=== PATIENT | female | born 1985 | race Two or more races ===

== ENCOUNTER 2019-07-03 13:56 | Observation (INO) | payer SELFPAY ==
[~2019-07-03 13:56] MED LIST: ROCURONIUM BROMIDE INJ 50 MG/5 ML VIAL IV ONE; SUCCINYLCHOLINE CHLORIDE INJ 200 MG/10 ML VIAL ONE
[2019-07-03] MEDS ORDERED: ONDANSETRON 4 MG TAB.RAPDIS PO ONE (14:21)
--- NOTE | 2019-07-03 14:23 | ER Document Report ---
ED Medical Screen (RME) - General Chief Complaint: Abdominal Pain Stated Complaint: ABDOMINAL PAIN Time Seen by Provider: 07/03/19 14:19 Mode of Arrival: Ambulatory Information source: Patient Notes: Patient presents the morning with complaints of abdominal pain that started this morning with vomiting. Denies past medical history. Right upper quad epigastric area very tender to palpate. I have greeted and performed a rapid initial assessment of this patient. A comprehensive ED assessment and evaluation of the patient, analysis of test results and completion of the medical decision making process will be conducted by additional ED providers. Dictation of this chart was performed using voice recognition software; therefore, there may be some unintended grammatical errors. Physical Exam - Vital signs Vitals: Pulse Resp BP Pulse Ox 83 18 126/67 H 100 07/03/19 14:00 07/03/19 14:00 07/03/19 14:00 07/03/19 14:00 Course - Vital Signs Vital signs: Temp Pulse Resp BP Pulse Ox 83 18 126/67 H 100 07/03/19 14:00 07/03/19 14:00 07/03/19 14:00 07/03/19 14:00
[2019-07-03] MEDS ORDERED: KETOROLAC TROMETHAMINE 60 MG/2 ML SDV IM ONE (14:34)
[2019-07-03] MEDS ORDERED: KETOROLAC TROMETHAMINE INJ/PF 30 MG/1 ML SDV IV ONE (15:03)
[2019-07-03 15:40] LABS: AMORPHOUS SEDIMENT,URINE TRACE /HPF; APPEARANCE,URINE TURBID; BILIRUBIN,URINE NEGATIVE (NEGATIVE); COLOR,URINE YELLOW; GLUCOSE, URINE NEGATIVE (NEGATIVE); KETONES,URINE 20 mg/dL (NEGATIVE); LEUKOCYTE ESTERASE,URINE SMALL (NEGATIVE); NITRITE,URINE NEGATIVE (NEGATIVE); PROTEIN,URINE 30 mg/dL (NEGATIVE); URINE SPECIFIC GRAVITY 1.025; UROBILINOGEN,URINE NEGATIVE mg/dL (<2.0)
[2019-07-03 15:44] LABS: ABSOLUTE LYMPHOCYTES (AUTO) 0.9 10^3/uL (0.5-4.7); ABSOLUTE MONOCYTES (AUTO) 0.6 10^3/uL (0.1-1.4); BASOPHILS % (AUTO) 0.2 % (0-2); HEMATOCRIT 41.4 % (36.0-47.0); HEMOGLOBIN 13.9 g/dL (12.0-15.5); LYMPHOCYTES % (AUTO) 6.2 % (13-45); MEAN CORPUSCULAR HEMOGLOBIN 30.3 pg (27.0-33.4); MEAN CORPUSCULAR HGB CONC 33.5 g/dL (32.0-36.0); MEAN CORPUSCULAR VOLUME 90 fl (80-97); MONOCYTES % (AUTO) 4.4 % (3-13); PLATELET COUNT 353 10^3/uL (150-450); RED BLOOD COUNT 4.58 10^6/uL (3.72-5.28); RED CELL DISTRIBUTION WIDTH 13.3 % (11.5-14.0); SEGMENTED NEUTROPHILS % (AUTO) 89.2 % (42-78); TOTAL CELLS COUNTED % (AUTO) 100 %; WHITE BLOOD COUNT 14.5 10^3/uL (4.0-10.5)
--- NOTE | 2019-07-03 15:47 | RADIOLOGY REPORT (SQ) ---
EXAM DESCRIPTION: U/S ABDOMEN LIMITED W/O DOP COMPLETED DATE/TIME: 07/03/2019 3:35 pm REASON FOR STUDY: ruq epigastric pain COMPARISON: None. TECHNIQUE: Dynamic and static grayscale images acquired of the abdomen and recorded on PACS. Alono gavin selected color Doppler and spectral images recorded. LIMITATIONS: None. FINDINGS: PANCREAS: No masses. Visualized pancreatic duct normal caliber. LIVER: No masses. Echotexture normal. LIVER VASCULATURE: Normal directional flow of the main portal vein and hepatic veins. GALLBLADDER: Some small gallstones are present. There is no wall thickening or pericholecystic fluid . ULTRASOUND-DETECTED MCPHERSON'S SIGN: Negative. INTRAHEPATIC DUCTS AND COMMON DUCT: CBD and intrahepatic ducts normal caliber. No filling defects. INFERIOR VENA CAVA: Not imaged. AORTA: No aneurysm. RIGHT KIDNEY: Normal size, 10.2 cm. Normal echogenicity. No solid or suspicious masses. No hydroneph rosis. No calcifications. PERITONEAL AND RIGHT PLEURAL SPACE: No ascites or effusions. OTHER: No other significant findings. IMPRESSION: Cholelithiasis with no evidence of cholecystitis. TECHNICAL DOCUMENTATION: JOB ID: [id number] [employer]- All Rights Reserved Reading location - IP/workstation name: [email or web address]
[2019-07-03 15:52] LABS: ALBUMIN 4.7 g/dL (3.5-5.0); ALKALINE PHOSPHATASE 108 U/L (38-126); ANION GAP 11 (5-19); ASPARTATE AMINO TRANSFERASE 28 U/L (14-36); BILIRUBIN,DIRECT 0.1 mg/dL (0.0-0.4); BILIRUBIN,TOTAL 0.7 mg/dL (0.2-1.3); BLOOD UREA NITROGEN 11 mg/dL (7-20); CALCIUM 9.9 mg/dL (8.4-10.2); CARBON DIOXIDE 24 mmol/L (22-30); CHLORIDE 105 mmol/L (98-107); GLUCOSE 144 mg/dL (75-110); TOTAL PROTEIN 8.3 g/dL (6.3-8.2)
[2019-07-03] MEDS ORDERED: NORMAL SALINE 1000 ML 1,000 ML IV ONE (17:24)
--- NOTE | 2019-07-03 17:30 | ER Document Report ---
ED GI/ - General Chief Complaint: Abdominal Pain Stated Complaint: ABDOMINAL PAIN Time Seen by Provider: 07/03/19 14:19 Mode of Arrival: Ambulatory Information source: Patient Notes: 33-year-old female presents to ED for complaint of right upper quadrant abdominal pain this morning with nausea and vomiting. She states she has not had any diarrhea. She states anything she drinks with milk based makes the pain much worse. She states she does smoke 1/2 pack a day drinks weekly does not do any drugs does not work and lives with friends. Her temperature was 98.8. Ultrasound showed cholelithiasis without any cholecystitis. White count was 14.5 with this setting of 89.2 we will consult with surgeon. - HPI Patient complains to provider of: Abdominal pain, Vomiting Onset: This morning Timing/Duration: Intermittent, Better Quality of pain: Cramping, Sharp Severity at maximum: Severe Severity in ED: Mild Pain Level: 2 Location: RUQ Vaginal bleeding (Compared to normal period): None Associated symptoms: Loss of appetite, Nausea, Vomiting Exacerbated by: Movement, Food Relieved by: Denies Similar symptoms previously: No Recently seen / treated by doctor: No - Related Data Allergies/Adverse Reactions: No Known Allergies Allergy (Unverified 07/03/19 14:23) Past Medical History - General Information source: Patient - Social History Smoking Status: Current Every Day Smoker Cigarette use (# per day): Yes - 1/2 pack/day Chew tobacco use (# tins/day): No Smoking Education Provided: Yes - 4 minutes Frequency of alcohol use: Social Drug Abuse: None Occupation: None Lives with: Friend Family History: Reviewed & Not Pertinent Patient has suicidal ideation: No Patient has homicidal ideation: No Pulmonary Medical History: Reports: None EENT Medical History: Reports: None Neurological Medical History: Reports: None Endocrine Medical History: Reports: None Renal/ Medical History: Reports: None Malignancy Medical History: Reports: None GI Medical History: Reports: Hx Colonoscopy Musculoskeletal Medical History: Reports None Skin Medical History: Reports Hx Eczema Psychiatric Medical History: Reports: Hx Depression, Hx Post Traumatic Stress Disorder Traumatic Medical History: Reports: None Infectious Medical History: Reports: None Surgical Hx: Negative Past Surgical History: Reports: None - Immunizations Immunizations up to date: Yes Hx Diphtheria, Pertussis, Tetanus Vaccination: Yes Review of Systems - Review of Systems Constitutional: No symptoms reported EENT: No symptoms reported Cardiovascular: No symptoms reported Respiratory: No symptoms reported Gastrointestinal: Abdominal pain, Nausea, Vomiting Genitourinary: No symptoms reported Female Genitourinary: No symptoms reported Musculoskeletal: No symptoms reported Skin: No symptoms reported Hematologic/Lymphatic: No symptoms reported Neurological/Psychological: No symptoms reported -: Yes All other systems reviewed and negative Physical Exam - Vital signs Vitals: Pulse Resp BP Pulse Ox 83 18 126/67 H 100 07/03/19 14:00 07/03/19 14:00 07/03/19 14:00 07/03/19 14:00 Interpretation: Normal - General General appearance: Appears well, Alert - HEENT Head: Normocephalic, Atraumatic Eyes: Normal Pupils: PERRL - Respiratory Respiratory status: No respiratory distress Chest status: Nontender Breath sounds: Normal Chest palpation: Normal - Cardiovascular Rhythm: Regular Heart sounds: Normal auscultation Murmur: No - Abdominal Inspection: Normal Distension: No distension Bowel sounds: Normal Tenderness: Tender, Smith's sign Organomegaly: No organomegaly - Back Back: Normal, Nontender - Extremities General upper extremity: Normal inspection, Nontender, Normal color, Normal ROM, Normal temperature General lower extremity: Normal inspection, Nontender, Normal color, Normal ROM, Normal temperature, Normal weight bearing. No: Ricardo's sign - Neurological Neuro grossly intact: Yes Cognition: Normal Orientation: AAOx4 [place] Coma Scale Eye Opening: Spontaneous [place] Coma Scale Verbal: Oriented [place] Coma Scale Motor: Obeys Commands [place] Coma Scale Total: 15 Speech: Normal Motor strength normal: LUE, RUE, LLE, RLE Sensory: Normal - Psychological Associated symptoms: Normal affect, Normal mood - Skin Skin Temperature: Warm Skin Moisture: Dry Skin Color: Normal Course - Re-evaluation Re-evalutation: 07/03/19 17:35 We will discuss labs and ultrasound with Jennifer before deciding dispensation Dr. Rodriguez was consulted he stated patient could not be sent home she needed to have the surgery. Patient was admitted to Dr. Rodriguez's services for cholelithiasis with elevated white count. He stated he would put in admission orders and patient was to be admitted to the surgical floor. - Vital Signs Vital signs: Temp Pulse Resp BP Pulse Ox 98.1 F 107 H 16 110/71 97 07/03/19 20:33 07/03/19 20:33 07/03/19 20:32 07/03/19 20:33 07/03/19 20:33 - Laboratory Result Diagrams: 07/03/19 14:50 07/03/19 14:50 Laboratory results interpreted by me: 07/03/19 07/03/19 07/03/19 14:50 14:50 14:50 WBC 14.5 H Lymph % (Auto) 6.2 L Absolute Neuts (auto) 13.0 H Seg Neutrophils % 89.2 H Glucose 144 H Total Protein 8.3 H Urine Protein 30 H Urine Ketones 20 H Urine Blood MODERATE H Ur Leukocyte Esterase SMALL H - Diagnostic Test Radiology reviewed: Image reviewed, Reports reviewed Discharge - Discharge Clinical Impression: Cholelithiasis Qualifiers: Cholelithiasis location: gallbladder Cholecystitis presence: with cholecystitis Cholecystitis acuity: unspecified acuity Biliary obstruction: without biliary obstruction Qualified Code(s): K80.10 - Calculus of gallbladder with chronic cholecystitis without obstruction Disposition: ADMITTED INPATIENT Admitting Provider: Surgicalist - [facility] Unit Admitted: Surgical Floor
--- NOTE | 2019-07-03 20:05 | PDOC H&P ---
History of Present Illness Admission Date/PCP: 07/03/19 19:23 State July 03 Patient complains of: Abdominal pain History of Present Illness: WINSOME SINHA is a 33 year old female Patient presents emergency department via ground rescue complaining of a day history of abdominal pain, nausea, anorexia. She denies constipation, history of trauma previous episodes. She was seen in the urgency department where she was found to have right upper quadrant tenderness, leukocytosis, and ultrasound demonstrating cholelithiasis. Surgery was consulted and patient was advised admission for definitive management. Past Medical History Past Medical History: Anxiety disorder, depression, PTSD, eczema Pulmonary Medical History: Reports: None EENT Medical History: Reports: None Neurological Medical History: Reports: None Endocrine Medical History: Reports: None Renal/ Medical History: Reports: None Malignancy Medical History: Reports: None Musculoskeltal Medical History: Reports: None Skin Medical History: Reports: Eczema Psychiatric Medical History: Reports: Depression, Post Traumatic Stress Disorder Traumatic Medical History: Reports: None Infectious Medical History: Reports: None Past Surgical History Past Surgical History: Reports: None Social History Lives with: Friend Smoking Status: Current Every Day Smoker Electronic Cigarette use?: No Frequency of Alcohol Use: Rare Hx Recreational Drug Use: No Hx Prescription Drug Abuse: No Family History Family History: None, Reviewed & Not Pertinent Parental Family History Reviewed: No Children Family History Reviewed: No Sibling(s) Family History Reviewed.: No Medication/Allergy Home Medications: No Home Medications 07/03/19 Allergies/Adverse Reactions: No Known Allergies Allergy (Unverified 07/03/19 14:23) Review of Systems Constitutional: PRESENT: as per HPI Eyes: ABSENT: visual disturbances Ears: ABSENT: hearing changes Cardiovascular: ABSENT: chest pain, dyspnea on exertion, edema, orthropnea, palpitations Respiratory: ABSENT: cough, hemoptysis Gastrointestinal: PRESENT: as per HPI Integumentary: ABSENT: rash, wounds Neurological: ABSENT: abnormal gait, abnormal speech, confusion, dizziness, focal weakness, syncope Psychiatric: ABSENT: anxiety, depression, homidical ideation, suicidal ideation Endocrine: ABSENT: cold intolerance, heat intolerance, polydipsia, polyuria Physical Exam Vital Signs: Temp Pulse Resp BP Pulse Ox 98.0 F 105 H 16 99/63 L 99 07/03/19 19:48 07/03/19 19:48 07/03/19 19:48 07/03/19 19:48 07/03/19 19:48 Intake & Output 07/02/19 07/03/19 07/04/19 06:59 06:59 06:59 Weight 69 kg General appearance: PRESENT: mild distress Head exam: PRESENT: normocephalic Eye exam: PRESENT: EOMI Mouth exam: PRESENT: dry mucosa Teeth exam: PRESENT: dental caries Neck exam: PRESENT: full ROM Respiratory exam: PRESENT: rhonchi Cardiovascular exam: PRESENT: RRR Pulses: PRESENT: normal carotid pulses, normal radial pulses, normal femoral pulses GI/Abdominal exam: PRESENT: other - Tender right upper quadrant with guarding, no rigidity. Rectal exam: PRESENT: deferred Extremities exam: PRESENT: full ROM Musculoskeletal exam: PRESENT: full ROM Psychiatric exam: PRESENT: appropriate affect Results Laboratory Results: 07/03/19 14:50 07/03/19 14:50 07/03/19 07/03/19 07/03/19 14:50 14:50 14:50 WBC 14.5 H RBC 4.58 Hgb 13.9 Hct 41.4 MCV 90 MCH 30.3 MCHC 33.5 RDW 13.3 Plt Count 353 Seg Neutrophils % 89.2 H Sodium 139.8 Potassium 5.0 Chloride 105 Carbon Dioxide 24 Anion Gap 11 BUN 11 Creatinine 0.57 Est GFR ( Amer) > 60 Glucose 144 H Calcium 9.9 Total Bilirubin 0.7 AST 28 Alkaline Phosphatase 108 Total Protein 8.3 H Albumin 4.7 Lipase 143.5 Urine Color YELLOW Urine Appearance TURBID Urine pH 6.0 Ur Specific [place] 1.025 Urine Protein 30 H Urine Glucose (UA) NEGATIVE Urine Ketones 20 H Urine Blood MODERATE H Urine Nitrite NEGATIVE Ur Leukocyte Esterase SMALL H Urine RBC (Auto) 6 Impressions: Abdomen Ultrasound 07/03/19 14:21 IMPRESSION: Cholelithiasis with no evidence of cholecystitis. Assessment & Plan - Diagnosis (1) Cholelithiasis Qualifiers: Cholelithiasis location: gallbladder Cholecystitis acuity: unspecified acuity Biliary obstruction: without biliary obstruction Is this a current diagnosis for this admission?: Yes Plan: Pression: Symptomatic cholelithiasis with cholecystitis and 33-year-old smoker Recommendations: 1. Admit, n.p.o., IV fluids, and plan for interval cholecystectomy, laparoscopic possible open, surgical list of the day likely July 04. 2. Patient expresses understanding agrees to proceed. (2) Smoker Is this a current diagnosis for this admission?: Yes (3) Anxiety disorder Is this a current diagnosis for this admission?: Yes - Time Time Spent: 30 to 50 Minutes Smoking Cessation Education: 3 to 10 minutes Medications reviewed and adjusted accordingly: Yes Anticipated discharge: Home - Inpatient Certification Based on my medical assessment, after consideration of the patient's comorbidities, presenting symptoms, or acuity I expect that the services needed warrant INPATIENT care.: Yes I certify that my determination is in accordance with my understanding of Medicare's requirements for reasonable and necessary INPATIENT services [42 CFR 412.3e].: Yes Medical Necessity: Need For IV Fluids, Need for Pain Control, Need for IV Antibiotics, Need for Surgery
[2019-07-03] MEDS ORDERED: ONDANSETRON HCL INJ/PF 4 MG/2 ML SDV IV PRN (20:06)
[2019-07-03] MEDS ORDERED: KETOROLAC TROMETHAMINE INJ/PF 30 MG/1 ML SDV IV PRN (20:06)
[2019-07-03] MEDS ORDERED: CEFAZOLIN 1 GM/D5W RTU 1 GM/50 ML RTUPB IV SCH (20:15)
[2019-07-03] MEDS: CEFAZOLIN SODIUM 1 GM in DEXTROSE 5%-WATER 50 ML IV SCH (21:44)
[2019-07-04] MEDS: RINGERS SOLUTION,LACTATED 1,000 ML IV PRN ×2 (03:43→13:19)
[2019-07-04] MEDS: CEFAZOLIN SODIUM 1 GM in DEXTROSE 5%-WATER 50 ML IV SCH ×3 (05:48→22:01)
[2019-07-04] MEDS ORDERED: ACETAMINOPHEN 1,000 MG/100 ML RTUPB IV ONE ×2 (16:13→19:07)
[2019-07-04] MEDS ORDERED: ONDANSETRON HCL INJ/PF 4 MG/2 ML SDV ONE (16:54)
[2019-07-04] MEDS ORDERED: FENTANYL CITRATE INJ/PF 100 MCG/2 ML AMPUL ONE (16:54)
[2019-07-04] MEDS ORDERED: DEXAMETHASONE SOD PHOSPHATE INJ 4 MG/1 ML VIAL ONE (16:54)
[2019-07-04] MEDS ORDERED: PROPOFOL INJ 200 MG/20 ML VIAL IV ONE (16:54)
[2019-07-04] MEDS ORDERED: MIDAZOLAM 2 MG/2 ML INJ ONE (16:54)
[2019-07-04] MEDS ORDERED: DIPHENHYDRAMINE HCL 50 MG/ML VIAL IV PRN (17:37)
[2019-07-04] MEDS ORDERED: ONDANSETRON HCL INJ/PF 4 MG/2 ML SDV IV PRN (17:37)
[2019-07-04] MEDS ORDERED: MORPHINE SULFATE 10 MG/ML INJ IV PRN (17:37)
[2019-07-04] MEDS ORDERED: MEPERIDINE HCL/PF INJ 25 MG/1 ML DISP.SYRIN IV PRN (17:37)
[2019-07-04] MEDS ORDERED: FENTANYL CITRATE INJ/PF 100 MCG/2 ML AMPUL IV PRN ×3 (17:37)
[2019-07-04] MEDS ORDERED: PROMETHAZINE HCL INJ 25 MG/1 ML VIAL IV PRN ×2 (17:37)
[2019-07-04] MEDS ORDERED: BUPIVACAINE HCL 0.5%-EPI 1:200000 INJ/PF 30 ML VIAL ONE (18:07)
--- NOTE | 2019-07-04 18:24 | Discharge Summary ---
Discharge Summary (SDC) - Discharge Final Diagnosis: cholecystitis Date of Surgery: 07/04/19 Discharge Date: 07/04/19 Condition: Good Referrals: [facility] [Provider Group] - 07/15/19 1:15 pm () Discharge Diet: As Tolerated Discharge Activity: Activity As Tolerated, No Lifting Over 10 Pounds Report the Following to Your Physician Immediately: Shortness of Breath, Increase in Pain, Fever over 101 Degrees, Unusual Bleeding
--- NOTE | 2019-07-04 18:32 | Operative Report ---
Nonrecallable Operative Report DATE OF SURGERY: 07/04/19 PREOPERATIVE DIAGNOSIS: Cholecystitis POSTOPERATIVE DIAGNOSIS: Cholecystitis OPERATION: Laparoscopic cholecystectomy SURGEON: MARLA WOODS ANESTHESIA: GA TISSUE REMOVED OR ALTERED: Gallbladder COMPLICATIONS: None ESTIMATED BLOOD LOSS: 50 cc INTRAOPERATIVE FINDINGS: Acute cholecystitis PROCEDURE: After obtaining informed consent, the patient was taken to the operating room. General Anesthesia was induced; the arms were extended, and the abdomen was exposed, and prepped and draped in a sterile fashion. Instrumentation was set up for laparoscopic cholecystectomy. Surgical plan and surgical timeout were conducted. A infraumbilical was made a below 10 the umbilicus, and a verres needle was inserted uneventfully into the peritoneal cavity. Pneumoperitoneum was established. The verres needle was removed and a 5 mm trocar was inserted and a 5 mm laparoscope was inserted. Visualization of the peritoneal cavity confirmed safe uneventful entry. Under direct visualization 3 additional 5 mm ports were established, one in the subxiphoid position and second in the subcostal position. Visualization of the hepatobiliary anatomy revealed no anatomic variations. A grasper was placed on the fundus of the gallbladder and the gallbladder is elevated over the right surface of the liver; a second grasper was used to grasp the infundibulum of the gallbladder. The neck of the gallbladder and junction with the cystic duct was dissected out. The Cystic artery was in its usual location medial and cephalad to the cystic duct. The cystic artery was surrounded with a right angle clamp, clipped twice proximally and divided with laparoscopic scissors. We now opened the triangle of Calot by dividing the peritoneal reflection on both the medial and lateral sides of the cystic duct infundibular junction. The critical view was obtained. We now milked the cystic duct of any possible stones, clipped the cystic duct approximately 2 times once distally and divided with scissors. The gallbladder was now removed from the undersurface of the liver using hook cautery dissection. Graspers were repositioned and the gallbladder was removed uneventfully from the abdominal cavity through the super umbilical port site incision. The specimen was examined, then passed off to pathology for permanent analysis. We returned to the peritoneal cavity check for bleeding, and evidence of bile leak, and there was none. We Confirmed satisfactory placement of clips on cystic duct and cystic artery were secured . At this point we felt the operation was complete. The subcutaneous tissue was then anesthetized with quarter percent Marcaine Sponge and needle counts are correct. All ports removed under direct visualization pneumoperitoneum evacuated, and 5 mm port wounds closed with 3-0 Vicryl suture, benzoin and Steri-Strips. The patient was extubated, and taken to the recovery room in stable condition. Sponge needle counts were correct x2 estimated blood loss 50 cc
--- NOTE | 2019-07-04 18:34 | PDOC DISCHARGE SUMMARY ---
General - Admit/Disc Date/PCP Admission Date/Primary Care Provider: 07/03/19 19:23 Discharge Date: 07/04/19 - Discharge Diagnosis Final Diagnosis: Acute cholecystitis - Assessment Summary: Patient was admitted on 07/03/2019 with upper abdominal pain in the right upper quadrant radiating to the back on ultrasound was consistent with cholelithiasis and therefore patient was admitted with a diagnosis because of cholelithiasis. She was made n.p.o. and taken to the operating room the following day where she underwent laparoscopic cholecystectomy which showed cholecystitis the gal lbladder was removed uneventfully and the patient had a benign postop course and recovery room. There is no surgical complications and for the patient is being discharged home this evening with instructions to resume a light diet tonight she will be given a follow-up appointment in 7 to 10 days after discharge Final diagnosis is acute cholecystitis. - Additional Information Resuscitation Status: Full Code Discharge Diet: As Tolerated Discharge Activity: Activity As Tolerated, No Lifting Over 10 Pounds Referrals: [facility] [Provider Group] - 07/15/19 1:15 pm () Home Medications: Bupropion HCl [Wellbutrin Xl 300mg 24hr Tablet] 300 mg PO DAILY 07/03/19 History of Present Illiness History of Present Illness: WINSOME SINHA is a 33 year old female Physical Exam Vital Signs: Temp Pulse Resp BP Pulse Ox 97.7 F 77 20 107/63 98 07/04/19 12:15 07/04/19 12:15 07/04/19 12:15 07/04/19 12:15 07/04/19 12:15 Intake & Output 07/03/19 07/04/19 07/05/19 06:59 06:59 06:59 Intake Total 1100 1050 Output Total 600 Balance 500 1050 Weight 70.6 kg Results Laboratory Results: WBC 14.5 10^3/uL (4.0-10.5) H 07/03/19 14:50 RBC 4.58 10^6/uL (3.72-5.28) 07/03/19 14:50 Hgb 13.9 g/dL (12.0-15.5) 07/03/19 14:50 Hct 41.4 % (36.0-47.0) 07/03/19 14:50 MCV 90 fl (80-97) 07/03/19 14:50 MCH 30.3 pg (27.0-33.4) 07/03/19 14:50 MCHC 33.5 g/dL (32.0-36.0) 07/03/19 14:50 RDW 13.3 % (11.5-14.0) 07/03/19 14:50 Plt Count 353 10^3/uL (150-450) 07/03/19 14:50 Lymph % (Auto) 6.2 % (13-45) L 07/03/19 14:50 [place] % (Auto) 4.4 % (3-13) 07/03/19 14:50 Eos % (Auto) 0.0 % (0-6) 07/03/19 14:50 Baso % (Auto) 0.2 % (0-2) 07/03/19 14:50 Absolute Neuts (auto) 13.0 10^3/uL (1.7-8.2) H 07/03/19 14:50 Absolute Lymphs (auto) 0.9 10^3/uL (0.5-4.7) 07/03/19 14:50 Absolute Monos (auto) 0.6 10^3/uL (0.1-1.4) 07/03/19 14:50 Absolute Eos (auto) 0.0 10^3/uL (0.0-0.6) 07/03/19 14:50 Absolute Basos (auto) 0.0 10^3/uL (0.0-0.2) 07/03/19 14:50 Seg Neutrophils % 89.2 % (42-78) H 07/03/19 14:50 Sodium 139.8 mmol/L (137-145) 07/03/19 14:50 Potassium 5.0 mmol/L (3.6-5.0) 07/03/19 14:50 Chloride 105 mmol/L (98-107) 07/03/19 14:50 Carbon Dioxide 24 mmol/L (22-30) 07/03/19 14:50 Anion Gap 11 (5-19) 07/03/19 14:50 BUN 11 mg/dL (7-20) 07/03/19 14:50 Creatinine 0.57 mg/dL (0.52-1.25) 07/03/19 14:50 Est GFR ( Amer) > 60 (>60) 07/03/19 14:50 Est GFR (MDRD) Non-Af > 60 (>60) 07/03/19 14:50 Glucose 144 mg/dL (75-110) H 07/03/19 14:50 Calcium 9.9 mg/dL (8.4-10.2) 07/03/19 14:50 Total Bilirubin 0.7 mg/dL (0.2-1.3) 07/03/19 14:50 Direct Bilirubin 0.1 mg/dL (0.0-0.4) 07/03/19 14:50 Neonat Total Bilirubin Not Reportable 07/03/19 14:50 Neonat Direct Bilirubin Not Reportable 07/03/19 14:50 Neonat Indirect Bili Not Reportable 07/03/19 14:50 AST 28 U/L (14-36) 07/03/19 14:50 ALT 29 U/L (<35) 07/03/19 14:50 Alkaline Phosphatase 108 U/L (38-126) 07/03/19 14:50 Total Protein 8.3 g/dL (6.3-8.2) H 07/03/19 14:50 Albumin 4.7 g/dL (3.5-5.0) 07/03/19 14:50 Lipase 143.5 U/L (23-300) 07/03/19 14:50 Urine Color YELLOW 07/03/19 14:50 Urine Appearance TURBID 07/03/19 14:50 Urine pH 6.0 (5.0-9.0) 07/03/19 14:50 Ur Specific [place] 1.025 07/03/19 14:50 Urine Protein 30 mg/dL (NEGATIVE) H 07/03/19 14:50 Urine Glucose (UA) NEGATIVE mg/dL (NEGATIVE) 07/03/19 14:50 Urine Ketones 20 mg/dL (NEGATIVE) H 07/03/19 14:50 Urine Blood MODERATE (NEGATIVE) H 07/03/19 14:50 Urine Nitrite NEGATIVE (NEGATIVE) 07/03/19 14:50 Urine Bilirubin NEGATIVE (NEGATIVE) 07/03/19 14:50 Urine Urobilinogen NEGATIVE mg/dL (<2.0) 07/03/19 14:50 Ur Leukocyte Esterase SMALL (NEGATIVE) H 07/03/19 14:50 Urine RBC (Auto) 6 /HPF 07/03/19 14:50 Urine Bacteria (Auto) 1+ /HPF 07/03/19 14:50 Squamous Epi Cells Auto 11 /HPF 07/03/19 14:50 Amorphous Sediment Auto TRACE /HPF 07/03/19 14:50 Urine Mucus (Auto) MANY /LPF 07/03/19 14:50 Urine Ascorbic Acid NEGATIVE (NEGATIVE) 07/03/19 14:50 Urine HCG, Qual NEGATIVE (NEGATIVE) 07/03/19 14:50 Impressions: Abdomen Ultrasound 07/03/19 14:21 IMPRESSION: Cholelithiasis with no evidence of cholecystitis.
[2019-07-04] MEDS ORDERED: KETOROLAC TROMETHAMINE INJ/PF 30 MG/1 ML SDV ONE (19:07)
[2019-07-04] MEDS: FENTANYL CITRATE INJ/PF 100 MCG/2 ML AMPUL ONE ×2 (19:20→19:30)
[2019-07-04 21:31] VITALS: BP 126/93
== END 2019-07-04 22:00 | disposition home or self-care (01) ==
LOC: ER 13:56 → EH 19:23 → INTOOBSV 19:23 → 4S 20:31
PROVIDERS: ADMIT Surgery; ATTEND Surgery
PROC: 0FT44ZZ Resection of Gallbladder, Percutaneous Endoscopic Approach (ICD-10-PCS; principal; 2019-07-04 15:00)
DX: K80.12 Calculus of gallbladder with acute and chronic cholecystitis without obstruction (principal); F17.210 Nicotine dependence, cigarettes, uncomplicated; F41.9 Anxiety disorder, unspecified; F32.9 Major depressive disorder, single episode, unspecified
CPT/HCPCS: 99406; 99285; 96361; 96374; 36415; 83690; 85025; 81025; 80053; 81001; 88304 ×2; 76705; 00790; 47562; G0378 ×3; J2250; J3490 ×2; J0690 ×2; J1100; S0119; J3010; J1885 ×2; J0330; J2405; J7060 ×2; J7030; J7120; J2704; J0131; 790